=== PATIENT | female | born 2000 | race Caucasian/White ===

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

== ENCOUNTER 2023-10-13 00:08 | Inpatient (IN) ==
[2023-10-13] MEDS ORDERED: Calcium Carb (TUMS) 500 mg CHEW TAB PO PRN (01:26)
[2023-10-13 01:35] LABS: Urine Benzodiazepine Screen None Detected (None Detect); Urine Cannabinoids Screen None Detected (None Detect); Urine Opiates Screen None Detected (None Detect)
[2023-10-13] MEDS: Lactated Ringers 1000 ml BAG 1,000 ML IV SCH (02:15)
[2023-10-13] MEDS: Penicillin G Potassium IV 5,000,000 UNITS in NS 0.9% 100 ml BAG 100 ML IVPB ONE (02:15)
[2023-10-13 02:28] LABS: Hematocrit 37.9 % (35-45); Hemoglobin 12.8 g/dL (11.5-14.3); Mean Corpuscular Hemoglobin 30.3 pg (27-33); Mean Corpuscular Hgb Conc 33.9 g/dL (31-36); Mean Corpuscular Volume 89.5 fL (80-97); Mean Platelet Volume 8.9 fL (7.5-11.2); Platelet Count 222 10^3/uL (150-450); Red Blood Count 4.23 10^6/uL (3.63-4.92); Red Cell Distribution Width 14.3 % (12-17); White Blood Count 11.3 10^3/uL (3.8-11.8)
[2023-10-13] MEDS: Ondansetron 4 mg VIAL 2 MG/ML 2 ml VIAL IV PRN (03:26)
[2023-10-13] MEDS: Penicillin G Potassium IV 3,000,000 UNITS in NS 0.9% 100 ml BAG 100 ML IVPB SCH (06:40)
[2023-10-13] MEDS: Prochlorperazine 5 mg/ml 2 ml VIAL (10 mg) IV PRN (06:52)
[2023-10-13] MEDS: Buffered Lidocaine 1% SYRIN 1 ml INTRADERM ONE (08:09)
[2023-10-13] MEDS ORDERED: Phenylephrine 40 mcg/mL 10mL (400mcg) SYRINGE IV PUSH PRN ×2 (10:22)
[2023-10-13] MEDS ORDERED: Sodium Citrate/Citric Acid LIQ 15 ML UDC PO PRN (10:22)
[2023-10-13] MEDS: Lactated Ringers 1000 ml BAG 1,000 ML IV ONE (10:55)
[2023-10-13] MEDS: OBEPIDURAL (200 ML) 200 ML EPIDURAL SCH (11:00)
[2023-10-13] MEDS: Lidocaine 1.5% EPI 1:200,000 30 ML SDV ONE (11:00)
[2023-10-13] MEDS: Oxytocin in LR 20,000 MILLI.UNIT/1,000 ML BAG IV SCH (11:59)
[2023-10-13 12:09] LABS: Urine Appearance Clear; Urine Bilirubin Negative (Negative); Urine Blood Negative (Negative); Urine Color Light-Yellow; Urine Glucose Negative (Negative); Urine Ketones 2+ (Negative); Urine Nitrite Negative (Negative); Urine Protein Negative (Negative); Urine Specific Gravity 1.016 (1.002-1.030); Urine Urobilinogen Negative (Negative); Urine pH 6.5 (5.0-8.0)
[2023-10-13] MEDS: OBEPIDURAL (200 ML) 200 ML EPIDURAL ONE (14:23)
[2023-10-13] MEDS: Lidocaine 1% VIAL 10 MG/ML 30 ML VIAL INJ PRN (17:10)
[2023-10-13] MEDS ORDERED: Glycerin ADULT 2.4 gm SUPP PR PRN (17:24)
[2023-10-14 06:44] LABS: ABS Eosinophils 0.1 10^3/uL (0.0-0.5); ABS Lymphocytes 1.4 10^3/uL (1.0-4.8); ABS Monocytes 0.8 10^3/uL (0.0-0.9); ABS Nucleated RBC 0.01 10^3/ul; Eosinophil % 0.9 %; Hematocrit 32.7 % (35-45); Hemoglobin 11.2 g/dL (11.5-14.3); Mean Corpuscular Hemoglobin 30.8 pg (27-33); Mean Corpuscular Hgb Conc 34.2 g/dL (31-36); Mean Corpuscular Volume 89.9 fL (80-97); Mean Platelet Volume 9.1 fL (7.5-11.2); Nucleated Red Blood Cells % 0.1 %/100WBC (0.0-0.8); Platelet Count 193 10^3/uL (150-450); Red Blood Count 3.64 10^6/uL (3.63-4.92); Red Cell Distribution Width 14.6 % (12-17); White Blood Count 9.3 10^3/uL (3.8-11.8)
[2023-10-14] MEDS: Lactated Ringers 1000 ml BAG 1,000 ML IV SCH (07:15)
[2023-10-14] MEDS: Lactated Ringers 1000 ml BAG 1,000 ML IV ONE (07:16)
[2023-10-14] MEDS: Dibucaine 1% OINT 28.35 GM TUBE PR PRN (16:16)
[2023-10-15 08:00] VITALS: BP 122/75
[2023-10-15] MEDS: Measles, Mumps,Rubella VACC 0.5 ML/VIAL SUBCUT ONE ×2 (12:11→13:03)
[2023-10-15] MEDS: Witch Hazel PAD JAR TOPICAL PRN (15:09)
== END 2023-10-15 15:28 | disposition home or self-care (01) | DRG 560 ==
LOC: MCHOBOUT 00:08 → MCHOB 00:17
PROVIDERS: ADMIT Advanced Practice Midwife; ATTEND Midwife